=== PATIENT | male | born 1940 | race Caucasian/White ===

== ENCOUNTER 2020-03-18 08:05 | Day surgery (SDC) | payer MEDICARE, BC ==
[~2020-03-18] VITALS: Ht 185.4 cm; Wt 118.5 kg
[2020-03-18 09:00] VITALS: BP 105/48
[2020-03-18] MEDS ORDERED: LISI-604 PO (09:08)
[2020-03-18] MEDS ORDERED: METO-395 PO (09:08)
[2020-03-18] MEDS ORDERED: AMIO200T27 PO (09:08)
[2020-03-18] MEDS ORDERED: ATOR10TA70 PO (09:08)
[2020-03-18] MEDS ORDERED: POTA10TA36 PO (09:08)
[2020-03-18] MEDS ORDERED: FURO-150 PO (09:08)
[2020-03-18] MEDS ORDERED: APIX5TAB3 PO (09:08)
[2020-03-18] MEDS ORDERED: ALBU8.5H8 INH (09:08)
[2020-03-18] MEDS ORDERED: ACET325T55 PO (09:08)
[2020-03-18] MEDS ORDERED: ASPI-611 PO (09:08)
[2020-03-18] MEDS ORDERED: FLO0.4C PO (09:08)
[2020-03-18 10:00] VITALS: BP 118/62
[2020-03-18 10:17] VITALS: BP 87/41
[2020-03-18 10:45] VITALS: BP 130/61
== END 2020-03-18 11:10 | disposition home or self-care (01) ==
LOC: SSTAY O 08:05 → MED 3N 08:11 → SSTAY O 11:10
PROVIDERS: ATTEND Radiology Vascular & Interventional Radiology
DX: J90 Pleural effusion, not elsewhere classified (principal); K21.9 Gastro-esophageal reflux disease without esophagitis; I25.10 Atherosclerotic heart disease of native coronary artery without angina pectoris; J45.909 Unspecified asthma, uncomplicated; E78.5 Hyperlipidemia, unspecified; I10 Essential (primary) hypertension; I48.91 Unspecified atrial fibrillation; Z88.0 Allergy status to penicillin; Z88.8 Allergy status to other drugs, medicaments and biological substances; Z79.82 Long term (current) use of aspirin; Z72.89 Other problems related to lifestyle
CPT/HCPCS: 32555; 71045; C1729